=== PATIENT | female | born 1950 | race Caucasian/White ===

== ENCOUNTER 2017-03-03 14:25 | Outpatient (CLI) | payer MEDICARE, MEDICAID | END 2017-03-03 14:26 | disposition critical access hospital (66) | DX: R06.02 Shortness of breath (principal) | CPT/HCPCS: A0425; A0429 ==

== ENCOUNTER 2017-03-03 14:45 | Emergency (ER) | payer MEDICARE, MEDICAID ==
[2017-03-03] MEDS ORDERED: SODIUM CHLORIDE 0.9% 1,000 ML IV ONE (15:51)
== END 2017-03-03 18:30 | disposition home or self-care (01) ==
DX: E86.0 Dehydration (principal); R06.02 Shortness of breath; R03.0 Elevated blood-pressure reading, without diagnosis of hypertension; E11.9 Type 2 diabetes mellitus without complications; Z79.84 Long term (current) use of oral hypoglycemic drugs; E03.9 Hypothyroidism, unspecified; M19.90 Unspecified osteoarthritis, unspecified site; M05.10 Rheumatoid lung disease with rheumatoid arthritis of unspecified site; Z79.52 Long term (current) use of systemic steroids

== ENCOUNTER 2017-04-15 09:33 | Outpatient (CLI) | payer MEDICARE, MEDICAID ==
[2017-04-15] MEDS ORDERED: ALBUTEROL NEB 2.5 MG/3 ML INH ONE (10:00)
== END 2017-04-15 09:34 | disposition home or self-care (01) ==
LOC: RT 09:33
PROVIDERS: ATTEND Internal Medicine
DX: J84.9 Interstitial pulmonary disease, unspecified (principal)
CPT/HCPCS: 94060; 94729; J7613

== ENCOUNTER 2017-04-17 11:31 | Outpatient (CLI) | payer MEDICARE, MEDICAID | END 2017-04-17 11:32 | disposition home or self-care (01) | LOC: DI 11:31 | PROVIDERS: ATTEND Internal Medicine | DX: R07.9 Chest pain, unspecified (principal); R06.09 Other forms of dyspnea; I51.7 Cardiomegaly | CPT/HCPCS: 93306 ==

== ENCOUNTER 2017-10-01 15:09 | Outpatient (CLI) | payer MEDICARE, MEDICAID ==
[2017-10-01 15:53] LABS: BASOPHILS % (AUTO) 0.7 %; EOSINOPHILS # (AUTO) 0.2 10^3/uL (0.0-0.7); HGB - HEMOGLOBIN 14.5 g/dL (12.0-16.0); LYMPHOCYTES # (AUTO) 1.2 10^3/uL (1.5-3.5); LYMPHOCYTES % (AUTO) 17.9 %; MEAN CORPUSCULAR HEMOGLOBIN 31.8 pg (27.0-31.0); MEAN CORPUSCULAR HGB CONC 32.9 g/dL (32.0-36.0); MEAN CORPUSCULAR VOLUME 96.6 fL (81.0-99.0); MEAN PLATELET VOLUME 7.5 fL (7.9-10.8); MONOCYTES # (AUTO) 0.3 10^3/uL (0.0-1.0); MONOCYTES % (AUTO) 4.2 %; NEUTROPHILS # (AUTO) 4.9 10^3/uL (1.5-6.6); NEUTROPHILS % (AUTO) 74.2 %; PLT - PLATELET COUNT 165 10^3/uL (130-450); RED BLOOD COUNT 4.58 10^6/uL (4.20-5.40); RED CELL DISTRIBUTION WIDTH 13.1 % (12.0-15.0); WHITE BLOOD COUNT 6.6 x10^3/uL (4.8-10.8)
[2017-10-01 16:15] LABS: BILIRUBIN,URINE NEGATIVE (NEGATIVE); GLUCOSE, URINE (UA) NEGATIVE (NEGATIVE); KETONES,URINE (UA) NEGATIVE (NEGATIVE); LEUKOCYTE ESTERASE, URINE SMALL (NEGATIVE); NITRITE,URINE NEGATIVE (NEGATIVE); OCCULT BLOOD,URINE NEGATIVE (NEGATIVE); PROTEIN,URINE NEGATIVE (NEGATIVE); UROBILINOGEN,URINE 0.2 (NORMAL) E.U./dL (NORMAL)
[2017-10-01 16:16] LABS: CLARITY,URINE CLEAR (CLEAR)
[2017-10-01 16:29] LABS: ALT ALANINE AMINOTRANSFERASE 24 IU/L (10-60); AST ASPARTATE AMINOTRANSFERASE 23 IU/L (10-42); BUN - BLOOD UREA NITROGEN 15 mg/dL (6-20); CALCIUM 9.4 mg/dL (8.5-10.3); CARBON DIOXIDE - CO2 22 mmol/L (21-32); CHLORIDE 101 mmol/L (101-111); CHOL/HDL RATIO 3.3 (<4.4); CHOLESTEROL 210 mg/dL; CREATININE 0.9 mg/dL (0.4-1.0); GFR - MDRD 63 (>89); GLUCOSE 138 mg/dL (70-100); HDL CHOLESTEROL 63 mg/dL; LDL CHOLESTEROL,CALCULATED 106 mg/dL; LDL/HDL RATIO 1.7 (<4.4); SODIUM 137 mmol/L (135-145); VLDL CHOLESTEROL 41 mg/dL
[2017-10-01 17:21] LABS: THYROID STIMULATING HORMONE < 0.08 uIU/mL (0.34-5.60)
[2017-10-01 17:32] LABS: HB2 TOTAL 15.4 g/dL; HEMOGLOBIN A1C 0.53 g/dL; HEMOGLOBIN A1C % 5.3 % (4.6-6.2)
== END 2017-10-01 15:10 | disposition home or self-care (01) ==
LOC: LAB 15:09
PROVIDERS: ATTEND Orthopaedic Surgery
DX: Z01.818 Encounter for other preprocedural examination (principal); E11.9 Type 2 diabetes mellitus without complications; E78.2 Mixed hyperlipidemia; E03.9 Hypothyroidism, unspecified; N39.0 Urinary tract infection, site not specified; R73.09 Other abnormal glucose
CPT/HCPCS: 36415; 80048; 80051; 80061; 81003; 82565; 82947; 83036; 83721; 84439; 84443; 84450; 84460; 84520; 85025

== ENCOUNTER 2017-10-08 15:27 | Outpatient (CLI) | payer MEDICARE, MEDICAID | END 2017-10-08 15:28 | disposition home or self-care (01) | LOC: LAB 15:27 → RT 15:28 | PROVIDERS: ATTEND Orthopaedic Surgery | DX: Z01.810 Encounter for preprocedural cardiovascular examination (principal); N39.0 Urinary tract infection, site not specified; R73.09 Other abnormal glucose | CPT/HCPCS: 93005 ==

== ENCOUNTER 2017-11-05 14:27 | Outpatient (CLI) | payer MEDICARE, MEDICAID | END 2017-11-05 14:28 | disposition home or self-care (01) | LOC: SC 14:27 | PROVIDERS: ATTEND Nurse Practitioner Family | DX: G47.33 Obstructive sleep apnea (adult) (pediatric) (principal) | CPT/HCPCS: 99213; G0463; 99212 ==

== ENCOUNTER 2018-01-23 14:25 | Outpatient (CLI) | payer MEDICARE, MEDICAID ==
--- NOTE | 2018-01-27 15:36 | DEXA Report ---
DEXA: 01/23/2018 CLINICAL INDICATION: Postmenopausal. TECHNIQUE: Dual energy x-ray absorptiometry (DXA) was performed on a [employer] system. Regions measured are the AP spine, femoral neck, and, if needed, forearm. COMPARISON: None. In accordance with the International Society for Clinical Densitometry (ISCD) guidelines, data from previous exams may be reanalyzed using current recommendations and techniques. This is done to allow a more accurate basis for comparison with the current study. FINDINGS The data for the lumbar spine is as follows: REGION BMD (g/cm/cm) T-SCORE Z-SCORE L1 0.787 -2.9 -1.7 L2 0.912 -2.4 -1.2 L3 1.051 -1.2 -0.1 L4 1.026 -1.4 -0.3 L1-L4 0.948 -1.9 -0.7 NOTE: All evaluable vertebrae are used for classification. The data for the hip is as follows: REGION BMD (g/cm/cm) T-SCORE Z-SCORE Neck 0.859 -1.3 -0.1 TOTAL 0.922 -0.7 0.3 NOTE: The femoral neck or total proximal femur, whichever is lowest, is used for classification. IMPRESSION WHO CLASSIFICATION BASED ON THE INTERNATIONAL REFERENCE STANDARD IS OSTEOPENIA. FRACTURE RISK IS INCREASED. RECOMMENDATION: Patients with diagnosis of osteoporosis or osteopenia should have regular bone mineral density assessment. For those eligible for Medicare, routine testing is allowed once every 2 years. Testing frequency can be increased for patients who have rapidly progressing disease or for those who are receiving medical therapy to restore bone mass. COMMENT World Health Organization (WHO) definitions for osteoporosis and osteopenia: NORMAL BMD: T-score at 1.0 or higher, fracture risk is low. OSTEOPENIA BMD: T-score between 1.0 and -2.5, fracture risk is increased. OSTEOPOROSIS BMD: T-score at 2.5 or lower, fracture risk high. National Osteoporosis Foundation recommends: 1. Obtain adequate dietary calcium (at least 1200 mg per day) and vitamin D (400 -800 international units per day). 2. Participate, as appropriate, in regular weightbearing and muscle- strengthening exercise. 3. Avoid tobacco use and reduce alcohol and caffeine intake. 4. For more detailed information see the website at www.NOF.org. TD: 01/23/2018 15:16 MTDSav
== END 2018-01-23 14:26 | disposition home or self-care (01) ==
LOC: DI 14:25
PROVIDERS: ATTEND Internal Medicine
DX: M85.88 Other specified disorders of bone density and structure, other site (principal)
CPT/HCPCS: 77080

== ENCOUNTER 2018-03-03 09:06 | Outpatient (CLI) | payer MEDICARE, MEDICAID | END 2018-03-03 09:07 | disposition critical access hospital (66) | LOC: EMS 09:06 | PROVIDERS: ATTEND Surgery | DX: R00.2 Palpitations (principal) | CPT/HCPCS: A0425; A0429 ==

== ENCOUNTER 2018-03-03 09:10 | Emergency (ER) | payer MEDICARE, MEDICAID ==
[2018-03-03] MEDS ORDERED: SODIUM CHLORIDE 0.9% 1,000 ML IV ONE (09:18)
--- NOTE | 2018-03-03 09:21 | ED Physician Documentation ---
History of Present Illness - Stated complaint Stated Complaint: PALPITATIONS - History obtained from History obtained from: Patient - History of Present Illness Timing: Today - Additonal information Additional information: 67-year-old female was in her usual state of health and this morning was awakened by palpitations in her chest. She felt her heart racing and thumping in her chest rapidly. She denies diaphoresis nausea or shortness of breath associated with this and states that she sat up and this continued for about another minute. She believes the episode altogether lasted 3 minutes. She called 911 and medics arrived to find her in the sinus tachycardia with a rate of 110. She is now asymptomatic and was asymptomatic at the time of their initial intervention. Review of Systems Constitutional: denies: Fever, Chills Eyes: denies: Decreased vision Ears: denies: Ear pain Nose: denies: Congestion Throat: denies: Sore throat Cardiac: reports: Palpitations. denies: Chest pain / pressure, Pedal edema, Calf pain Respiratory: reports: Dyspnea. 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 - Present Medications Home Medications: Ambulatory Orders Medication Instructions Recorded Confirmed Cholecalciferol (Vitamin D3) 50,000 unit PO BIDWM 08/24/14 10/31/14 [Vitamin D] Cyclobenzaprine [Flexeril] 10 mg PO BID 08/24/14 10/31/14 Dextroamphetamine/Amphetamine 20 mg PO DAILY 08/24/14 10/31/14 [Amphetamine Salts 10 mg Tablet] Hydrocodone/Acetaminophen 5 mg PO TID 08/24/14 10/31/14 [Hydrocodon-Acetaminophn 10-325] Levothyroxine Sodium 175 mcg PO DAILY 08/24/14 10/31/14 Metformin HCl 500 mg PO BID 08/24/14 10/31/14 Prednisone 20 mg PO DAILY 08/24/14 10/31/14 buPROPion [Wellbutrin Sr] 300 mg PO DAILY 08/24/14 10/31/14 Adalimumab [Humira] 40 mg SQ 03/03/18 Albuterol Sulf [Ventolin Hfa 2 puffs PRN PRN 03/03/18 03/03/18 Inhaler] Diclofenac Sodium [Voltaren] PRN 03/03/18 Hydroxychloroquine [Plaquenil] 400 mg PO DAILY 03/03/18 03/03/18 Zolpidem Tartrate [Ambien] 10 mg PO 03/03/18 risperiDONE [Risperdal] 0.5 mg PO BID 03/03/18 03/03/18 - Allergies Allergies/Adverse Reactions: Allergies Allergy/AdvReac Type Severity Reaction Status Date / Time codeine AdvReac Nausea Verified 03/03/18 10:03 NSAIDS (Non-Steroidal AdvReac Nausea Verified 03/03/18 10:03 Anti-Inflamma - Social History Does the pt smoke?: No Smoking Status: Never smoker Does the pt drink ETOH?: Yes - Immunizations Immunizations are current?: No Immunizations: TDAP >10years/unknown - POLST Patient has POLST: No PD ED PE NORMAL - Vitals Vital signs reviewed: Yes (hyertensive) - General General: Alert and oriented X 3, No acute distress, Well developed/nourished - HEENT HEENT: Atraumatic, PERRL, EOMI - Neck Neck: Supple, no meningeal sign, No bony TTP - Cardiac Cardiac: No murmur, Other (tachy to 100) - Respiratory Respiratory: No respiratory distress, Clear bilaterally - Abdomen Abdomen: Soft, Non tender - Back Back: No CVA TTP, No spinal TTP - Derm Derm: Normal color, Warm and dry, No rash - Extremities Extremities: No deformity, No edema - Neuro Neuro: Alert and oriented X 3, No motor deficit, No sensory deficit, Normal speech Eye Opening: Spontaneous Motor: Obeys Commands Verbal: Oriented GCS Score: 15 - Psych Psych: Normal mood, Normal affect Results - Vitals Vitals: Vital Signs - 24 hr 03/03/18 03/03/18 03/03/18 09:11 09:39 10:46 Temperature 36.7 C Heart Rate 95 75 67 Respiratory 15 17 20 Rate Blood Pressure 145/93 H 117/68 121/59 L O2 Saturation 99 96 98 03/03/18 11:40 Temperature Heart Rate 70 Respiratory 16 Rate Blood Pressure 122/60 O2 Saturation 99 Oxygen O2 Source Room air - EKG (time done) 0919 [place]: RAD QRS: Low voltage Ischemia: Normal ST segments Compare to prior EKG: Changed from prior EKG (SPT 10-08-17 rate has decreased. ) Computer interpretation: Agree with computer - Labs Labs: Laboratory Tests 03/03/18 03/03/18 03/03/18 09:36 09:49 09:49 WBC 6.8 RBC 4.31 Hgb 14.1 Hct 42.2 MCV 97.8 MCH 32.6 H MCHC 33.3 RDW 13.3 Plt Count 84 L MPV 9.2 Neut # (Auto) 4.1 Lymph # (Auto) 2.1 [place] # (Auto) 0.3 Eos # (Auto) 0.1 Baso # (Auto) 0.1 Absolute Nucleated RBC 0.00 Nucleated RBC % 0.1 D-Dimer Sodium 137 Potassium 3.7 Chloride 103 Carbon Dioxide 26 Anion Gap 8.0 BUN 17 Creatinine 0.7 Estimated GFR (MDRD) 84 L Glucose 84 Calcium 8.9 Total Bilirubin 0.7 AST 20 ALT 18 Alkaline Phosphatase 55 Troponin I < 0.04 Total Protein 6.3 L Albumin 3.5 Globulin 2.8 Albumin/Globulin Ratio 1.3 Lipase 21 L Urine Color Urine Clarity Urine pH Ur Specific [place] Urine Protein Urine Glucose (UA) Urine Ketones Urine Occult Blood Urine Nitrite Urine Bilirubin Urine Urobilinogen Ur Leukocyte Esterase Ur Microscopic Review Urine Culture Comments 03/03/18 03/03/18 10:10 11:12 WBC RBC Hgb Hct MCV MCH MCHC RDW Plt Count MPV Neut # (Auto) Lymph # (Auto) [place] # (Auto) Eos # (Auto) Baso # (Auto) Absolute Nucleated RBC Nucleated RBC % D-Dimer 214.7 Sodium Potassium Chloride Carbon Dioxide Anion Gap BUN Creatinine Estimated GFR (MDRD) Glucose Calcium Total Bilirubin AST ALT Alkaline Phosphatase Troponin I Total Protein Albumin Globulin Albumin/Globulin Ratio Lipase Urine Color YELLOW Urine Clarity CLEAR Urine pH 7.0 Ur Specific [place] 1.025 Urine Protein NEGATIVE Urine Glucose (UA) NEGATIVE Urine Ketones NEGATIVE Urine Occult Blood NEGATIVE Urine Nitrite NEGATIVE Urine Bilirubin NEGATIVE Urine Urobilinogen 0.2 (NORMAL) Ur Leukocyte Esterase NEGATIVE Ur Microscopic Review NOT INDICATED Urine Culture Comments NOT INDICATED Procedures - IVC sono (time) 0918 Bedside IVC sono: IVC measures (cm) (0.98), IVC collapsed c insp (cm) (complete) , Dehydration (est 1.5-2 liter deficit) PD MEDICAL DECISION MAKING - ED course Complexity details: reviewed results, re-evaluated patient, considered differential, d/w patient ED course: 67-year-old female awoke with palpitations this morning arrives to the emergency department with a resting tachycardia of about 100 and she is found to be dehydrated on interrogation the inferior vena cava. She is estimated but he to be between 1.5 and 2 L deficit and an IV is begun and she is administered saline. She feels much improved at the conclusion of treatment. - Sepsis Event Vital Signs: Vital Signs - 24 hr 03/03/18 03/03/18 03/03/18 09:11 09:39 10:46 Temperature 36.7 C Heart Rate 95 75 67 Respiratory 15 17 20 Rate Blood Pressure 145/93 H 117/68 121/59 L O2 Saturation 99 96 98 03/03/18 11:40 Temperature Heart Rate 70 Respiratory 16 Rate Blood Pressure 122/60 O2 Saturation 99 Oxygen O2 Source Room air Departure - Departure Disposition: 01 Home, Self Care Clinical Impression: Dehydration, Palpitations Condition: Stable Instructions: ED Dehydration, ED Palpitations Follow-Up: Tatiana Sheikh MD [Primary Care Provider] - Grace Dooley MD [Physician No Access] - Discharge Date/Time: 03/03/18 11:54
[2018-03-03 09:45] LABS: BASOPHILS # (AUTO) 0.1 10^3/uL (0.0-0.1); BASOPHILS % (AUTO) 1.2 %; EOSINOPHILS # (AUTO) 0.1 10^3/uL (0.0-0.7); EOSINOPHILS % (AUTO) 1.9 %; HGB - HEMOGLOBIN 14.1 g/dL (12.0-16.0); LYMPHOCYTES # (AUTO) 2.1 10^3/uL (1.5-3.5); LYMPHOCYTES % (AUTO) 31.2 %; MEAN CORPUSCULAR HEMOGLOBIN 32.6 pg (27.0-31.0); MEAN CORPUSCULAR HGB CONC 33.3 g/dL (32.0-36.0); MEAN CORPUSCULAR VOLUME 97.8 fL (81.0-99.0); MEAN PLATELET VOLUME 9.2 fL (7.9-10.8); MONOCYTES # (AUTO) 0.3 10^3/uL (0.0-1.0); MONOCYTES % (AUTO) 5.1 %; NEUTROPHILS # (AUTO) 4.1 10^3/uL (1.5-6.6); NEUTROPHILS % (AUTO) 60.6 %; PLT - PLATELET COUNT 84 10^3/uL (130-450); RED BLOOD COUNT 4.31 10^6/uL (4.20-5.40); RED CELL DISTRIBUTION WIDTH 13.3 % (12.0-15.0); WHITE BLOOD COUNT 6.8 x10^3/uL (4.8-10.8)
[2018-03-03 10:15] LABS: ALBUMIN 3.5 g/dL (3.2-5.5); ALBUMIN/GLOBULIN RATIO 1.3 (1.0-2.2); BILIRUBIN,TOTAL 0.7 mg/dL (0.2-1.0); CALCIUM 8.9 mg/dL (8.5-10.3); CREATININE 0.7 mg/dL (0.4-1.0); TOTAL PROTEIN 6.3 g/dL (6.7-8.2)
[2018-03-03 11:26] LABS: BILIRUBIN,URINE NEGATIVE (NEGATIVE); GLUCOSE, URINE (UA) NEGATIVE (NEGATIVE); KETONES,URINE (UA) NEGATIVE (NEGATIVE); LEUKOCYTE ESTERASE, URINE NEGATIVE (NEGATIVE); NITRITE,URINE NEGATIVE (NEGATIVE); OCCULT BLOOD,URINE NEGATIVE (NEGATIVE); PROTEIN,URINE NEGATIVE (NEGATIVE); UROBILINOGEN,URINE 0.2 (NORMAL) E.U./dL (NORMAL)
[2018-03-03 11:30] LABS: CLARITY,URINE CLEAR (CLEAR)
[2018-03-03 11:42] VITALS: BP 122/60
== END 2018-03-03 11:54 | disposition home or self-care (01) ==
LOC: EDUNIT# → ED 09:10
DX: E86.0 Dehydration (principal); R00.2 Palpitations; E03.9 Hypothyroidism, unspecified; E11.9 Type 2 diabetes mellitus without complications; Z79.84 Long term (current) use of oral hypoglycemic drugs
CPT/HCPCS: 36415; 80053; 81001; 81003; 83690; 84484; 85025; 85379; 87086; 93005; 96360; 99284

== ENCOUNTER 2019-05-09 00:51 | Outpatient (CLI) | payer MEDICARE, MEDICAID | END 2019-05-09 00:52 | disposition EMS.NT | LOC: EMS 00:51 | PROVIDERS: ATTEND Surgery | DX: M54.5 Low back pain (principal); W01.190A Fall on same level from slipping, tripping and stumbling with subsequent striking against furniture, initial encounter; Y92.000 Kitchen of unspecified non-institutional (private) residence as the place of occurrence of the external cause ==

== ENCOUNTER 2019-05-10 11:57 | Outpatient (CLI) | payer MEDICARE, MEDICAID | END 2019-05-10 11:58 | disposition critical access hospital (66) | LOC: EMS 11:57 | PROVIDERS: ATTEND Surgery | DX: M25.552 Pain in left hip (principal); M54.5 Low back pain; W19.XXXA Unspecified fall, initial encounter | CPT/HCPCS: A0425; A0429 ==

== ENCOUNTER 2019-05-10 12:04 | Emergency (ER) | payer MEDICARE, MEDICAID ==
[2019-05-10] MEDS ORDERED: KETOROLAC 60 MG/2 ML VIAL IM STA (12:12)
--- NOTE | 2019-05-10 12:13 | ED Physician Documentation ---
PD HPI BACK INJURY - Stated complaint Stated Complaint: R HIP, BACK PX - History obtained from History obtained from: Patient - History of Present Illness Location: Right, Lower Type of injury: Fall, Twist Where injury occurred: Home Timing - onset: How many days ago (3) Timing - duration: Days (3) Timing - details: Abrupt onset, Still present Quality: Pain, Spasm, Sharp Improved by: Rest, Immobilization Worsened by: Moving, Palpating Associated symptoms: No: Fever, Weakness, Numbness, Incontinent of urine, Unable to urinate, Hematuria, Incontinent of stool Contributing factors: No: Anticoagulated Similar symptoms before: Has not had sx before Recently seen: Clinic - Additional information Additional information: 68-year-old female with a history of kyphoscoliosis Review of Systems Constitutional: denies: Fever Respiratory: denies: Cough GI: denies: Vomiting PD PAST MEDICAL HISTORY - Past Medical History Cardiovascular: Arrhythmia Respiratory: Other Endocrine/Autoimmune: Type 2 diabetes, HyPOthyroidism Psych: Depression, Bipolar disorder, ADD/ADHD, Post traumatic stress disorder Musculoskeletal: Osteoarthritis - Past Surgical History Past Surgical History: Yes General: Cholecystectomy 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 - Present Medications Home Medications: Ambulatory Orders Medication Instructions Recorded Confirmed Cholecalciferol (Vitamin D3) 50,000 unit PO BIDWM 08/24/14 10/31/14 [Vitamin D] Cyclobenzaprine [Flexeril] 10 mg PO BID 08/24/14 10/31/14 Dextroamphetamine/Amphetamine 20 mg PO DAILY 08/24/14 10/31/14 [Amphetamine Salts 10 mg Tablet] Hydrocodone/Acetaminophen 5 mg PO TID 08/24/14 10/31/14 [Hydrocodon-Acetaminophn 10-325] Levothyroxine Sodium 175 mcg PO DAILY 08/24/14 10/31/14 Metformin HCl 500 mg PO BID 08/24/14 10/31/14 Prednisone 20 mg PO DAILY 08/24/14 10/31/14 buPROPion [Wellbutrin Sr] 300 mg PO DAILY 08/24/14 10/31/14 Adalimumab [Humira] 40 mg SQ 03/03/18 Albuterol Sulf [Ventolin Hfa 2 puffs PRN PRN 03/03/18 03/03/18 Inhaler] Diclofenac Sodium [Voltaren] PRN 03/03/18 Hydroxychloroquine [Plaquenil] 400 mg PO DAILY 03/03/18 03/03/18 Zolpidem Tartrate [Ambien] 10 mg PO 03/03/18 risperiDONE [Risperdal] 0.5 mg PO BID 03/03/18 03/03/18 Hydrocodone/Acetaminophen 1 - 2 each PO Q6H PRN #14 tablet 05/10/19 [Hydrocodon-Acetaminophen 5-325] - Allergies Allergies/Adverse Reactions: Allergies Allergy/AdvReac Type Severity Reaction Status Date / Time codeine AdvReac Nausea Verified 05/10/19 12:21 NSAIDS (Non-Steroidal AdvReac Nausea Verified 05/10/19 12:21 Anti-Inflamma - Social History Does the pt smoke?: No Smoking Status: Never smoker Does the pt drink ETOH?: Yes - Immunizations Immunizations are current?: No Immunizations: TDAP >10years/unknown - POLST Patient has POLST: No PD ED PE NORMAL - Vitals Vital signs reviewed: Yes (hypertensive ) - General General: Alert and oriented X 3, Well developed/nourished - HEENT HEENT: Atraumatic, PERRL, EOMI - Respiratory Respiratory: No respiratory distress - Back Back: No CVA TTP, Other (There is right lumbar spinous and paraspinous muscle tenderness extending into the sciatic notch. 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 Minimal compression deformity of the superior endplate of L1, new compared to 12/28. 2 Possible minimal compression deformity of the superior endplate of L3, new compared to prior. 3 Mild degenerative changes of the lumbar spine.), EMP read indepedently, See rad report PD MEDICAL DECISION MAKING - ED course Complexity details: reviewed old records, reviewed results, re-evaluated patient, considered differential, d/w patient, d/w family ED course: 68-year-old female with a history of kyphoscoliosis has had a fall and she has a L1 compression fracture. She has pain with any movement she is quite comfortab le after getting Toradol here in the emergency department when she is not moving. She is placed into a TLSO brace with substantial improvement in her ability to move around and to walk. We will prescribe her some additional pain medication as she has taken which she normally has. Departure - Departure Disposition: Home, Self Care Clinical Impression: Lumbar compression fracture Qualifiers: Encounter type: initial encounter Lumbar vertebra fracture level: L1 Qualified Code(s): S32.010A - Wedge compression fracture of first lumbar vertebra, initial encounter for closed fracture Condition: Stable Instructions: ED Fx Comp Vertebral Follow-Up: Grace Dooley MD [Primary Care Provider] - Prescriptions: Hydrocodone/Acetaminophen [Hydrocodon-Acetaminophen 5-325] 1 - 2 each PO Q6H PRN #14 tablet PRN Reason: pain
--- NOTE | 2019-05-10 12:59 | XRAY Report ---
Reason: fall 3 days ago increasing lower back pain right Procedure Date: 05/10/2019 Accession Number: [id number] / [id number] Procedure: XR - Lumbar Spine 2 View CPT Code: FULL RESULT: EXAM: LUMBOSACRAL SPINE RADIOGRAPHY EXAM DATE: 05/10/2019 12:45 PM. CLINICAL HISTORY: Fall 3 days ago. Increasing lower back pain right. COMPARISONS: LUMBAR SPINE 12/28/2010 2:49 PM. TECHNIQUE: 2 views. FINDINGS: Evaluation limited by obliquity of the frontal view. Alignment: Normal. No spondylolisthesis or scoliosis. Bones: Five [id number] lumbar vertebral bodies are present. There is minimal compression deformity of the superior endplate of L1, new compared to 12/28/2010. No posterior wall height loss. There is possible minimal compression deformity of the superior endplate of L3, new compared to prior. The other visualized bones appear intact. No bone lesion. There is an unfused accessory ossicle at the anterior superior margin of L5 vertebral body, as seen on prior MRI. Disks: There is mild disk height loss at the T12-L1 level and L2-L3 level. Facets: There are mild degenerative facet changes of the lower lumbar spine. Sacroiliac Joints: Unremarkable. Soft Tissues: There is mild atherosclerotic ossification of the abdominal aorta. There are surgical clips in the upper abdomen. The visualized bowel gas pattern is normal. IMPRESSION: 1. Minimal compression deformity of the superior endplate of L1, new compared to 12/28/2010. 2. Possible minimal compression deformity of the superior endplate of L3, new compared to prior. 4. Mild degenerative changes of the lumbar spine. RADIA
[2019-05-10 16:06] VITALS: BP 124/76
== END 2019-05-10 16:05 | disposition home or self-care (01) ==
LOC: EDUNIT# → ED 12:04
DX: S32.010A Wedge compression fracture of first lumbar vertebra, initial encounter for closed fracture (principal); M25.551 Pain in right hip; W01.190A Fall on same level from slipping, tripping and stumbling with subsequent striking against furniture, initial encounter; Y92.009 Unspecified place in unspecified non-institutional (private) residence as the place of occurrence of the external cause; M41.9 Scoliosis, unspecified; E11.9 Type 2 diabetes mellitus without complications; Z79.84 Long term (current) use of oral hypoglycemic drugs
CPT/HCPCS: 72100; 96372; 99283; 99284

== ENCOUNTER 2019-07-12 23:43 | Outpatient (CLI) | payer MEDICARE, MEDICAID | END 2019-07-12 23:44 | disposition critical access hospital (66) | LOC: EMS 23:43 | PROVIDERS: ATTEND Surgery | DX: R14.0 Abdominal distension (gaseous) (principal); R11.0 Nausea | CPT/HCPCS: A0425; A0429 ==

== ENCOUNTER 2019-09-22 09:32 | Outpatient (CLI) | payer MEDICARE, MEDICAID | END 2019-09-22 09:33 | disposition critical access hospital (66) | LOC: EMS 09:32 | PROVIDERS: ATTEND Surgery | DX: R41.82 Altered mental status, unspecified (principal); M54.5 Low back pain; W06.XXXA Fall from bed, initial encounter; Y92.003 Bedroom of unspecified non-institutional (private) residence as the place of occurrence of the external cause | CPT/HCPCS: A0425; A0429 ==

== ENCOUNTER 2019-09-22 09:35 | Emergency (ER) | payer MEDICARE, MEDICAID ==
--- NOTE | 2019-09-22 09:47 | ED Physician Documentation ---
PD HPI ALTERED MENTAL STATUS - Stated complaint Stated Complaint: CONFUSION - History obtained from History obtained from: Patient - History of Present Illness Timing - onset: Today (Just prior to arrival) Timing - details: Abrupt onset Quality / character: No: Less responsive, Unresponsive, Confused Associated symptoms: No: Fever, Headache, Stiff neck, Cough, NVD Basline status: Alert and oriented X 3, Ambulatory (With walker), Walker Recently seen: Not recently seen - Additional information Additional information: This is a 68-year-old woman who presents by ambulance after she "fell out of bed". Apparently she heard someone in the house she thought it was the workers that were coming and she got out of bed quickly and fell onto the floor. It turns out there was not anyone actually in the house so she hit her [facility] and the ambulance came. She said this is her fourth fall in the past 5 to 6 months she just trips her shoulder turn her head while she is walking and fall. She did hit her head today but did not pass out. She complaining of a "straining" pain to the left neck and she has pain in her right thigh above the knee. No pain in the right arm. She does not has not felt ill recently. No stuffy nose sore throat or coughing. No urinary symptoms. She is diabetic. Review of Systems Constitutional: denies: Fever Eyes: denies: Decreased vision Nose: denies: Congestion Throat: denies: Sore throat Cardiac: denies: Chest pain / pressure, Palpitations Respiratory: denies: Dyspnea, Cough GI: denies: Abdominal Pain, Nausea, Vomiting : denies: Dysuria Skin: denies: Rash Musculoskeletal: reports: Neck pain, Extremity pain, Joint pain Neurologic: reports: Generalized weakness, Head injury. 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 HEENT: Cataracts - Present Medications Home Medications: Ambulatory Orders Medication Instructions Recorded Confirmed Cyclobenzaprine [Flexeril] 10 mg PO DAILY 08/24/14 07/14/19 Dextroamphetamine/Amphetamine 20 mg PO DAILY 08/24/14 07/13/19 [Dextroamp-Amphetamin 10 mg Tab] Levothyroxine Sodium 88 mcg PO DAILY 08/24/14 07/13/19 Metformin HCl 500 mg PO BID 08/24/14 07/14/19 Prednisone 10 mg PO DAILY 08/24/14 07/13/19 Adalimumab [Humira] 40 mg SQ Q14D 03/03/18 07/13/19 Albuterol Sulf [Ventolin Hfa 2 puffs PRN PRN 03/03/18 07/13/19 Inhaler] Zolpidem Tartrate [Ambien] 10 mg PO DAILY 03/03/18 07/13/19 risperiDONE [Risperdal] 0.5 mg PO DAILY 03/03/18 07/13/19 Bupropion HCl [Bupropion Xl] 300 mg PO DAILY 07/13/19 07/13/19 Cholecalciferol (Vitamin D3) 3,000 units PO DAILY 07/13/19 07/14/19 [Vitamin D3] Risperidone [Risperdal] 1 mg PO QPM 07/13/19 07/13/19 Alendronate Sodium 70 mg PO Q7D 07/14/19 07/14/19 Cyclobenzaprine [Flexeril] 20 mg PO QPM 07/14/19 07/14/19 Hydrocodone/Acetaminophen 1 tab PO TID PRN 07/14/19 07/14/19 [Hydrocodone-Acetamin 5-325 mg] - Allergies Allergies/Adverse Reactions: Allergies Allergy/AdvReac Type Severity Reaction Status Date / Time codeine AdvReac Nausea Verified 09/22/19 09:48 NSAIDS (Non-Steroidal AdvReac Nausea Verified 09/22/19 09:48 Anti-Inflamma - Social History Does the pt smoke?: No Smoking Status: Never smoker Does the pt drink ETOH?: Yes Does the pt have substance abuse?: Yes - Immunizations Immunizations are current?: No Immunizations: TDAP >10years/unknown - POLST Patient has POLST: No POLST Status: Full Code PD ED PE NORMAL - Vitals Vital signs reviewed: Yes - General General: Alert and oriented X 3, No acute distress, Well developed/nourished - HEENT HEENT: PERRL, EOMI, Moist mucous membranes, Other (Remains in the cervical collar until imaging could be obtained. There appears to be a small bit of bruising to the right upper forehead at the scalp line. No hematoma.) - Neck Neck: Other (In cervical collar) - Cardiac Cardiac: RRR, No murmur, Strong equal pulses - Respiratory Respiratory: No respiratory distress, Clear bilaterally - Abdomen Abdomen: Normal bowel sounds, Soft - Derm Derm: Normal color, Warm and dry, No rash - Extremities Extremities: No deformity, Other (There is a well-healed scar over the right knee. She has pain throughout the right thigh and palpation of the greater trochanter of the hip. No pain with palpation or movement of the left leg.) - Neuro Neuro: Alert and oriented X 3, suede cleaner 2-12 intact, No motor deficit, No sensory deficit, Normal speech - Psych Psych: Normal mood, Normal affect Results - Vitals Vitals: Vital Signs - 24 hr 09/22/19 09/22/19 09/22/19 09:43 10:06 11:40 Temperature 36.3 C L Heart Rate 78 109 H 73 Respiratory 20 14 16 Rate Blood Pressure 134/94 H 150/92 H 132/80 H O2 Saturation 99 100 99 09/22/19 09/22/19 13:38 14:21 Temperature 36.2 C L Heart Rate 66 Respiratory 14 Rate Blood Pressure 100/64 O2 Saturation 96 Oxygen O2 Source Room air - Labs Labs: Laboratory Tests 09/22/19 09/22/19 09/22/19 10:22 10:25 10:25 WBC 7.0 RBC 4.29 Hgb 13.7 Hct 42.8 MCV 99.8 H MCH 31.9 H MCHC 32.0 RDW 13.2 Plt Count 151 MPV 9.7 Neut # (Auto) 4.4 Lymph # (Auto) 1.7 Chicot # (Auto) 0.6 Eos # (Auto) 0.2 Baso # (Auto) 0.1 Absolute Nucleated RBC 0.00 Nucleated RBC % 0.0 Sodium 137 Potassium 4.1 Chloride 104 Carbon Dioxide 22 Anion Gap 11.0 BUN 13 Creatinine 0.8 Estimated GFR (MDRD) 72 L Glucose 104 H Calcium 9.1 Total Bilirubin 1.0 AST 24 ALT 17 Alkaline Phosphatase 41 L B-Natriuretic Peptide 18 Total Protein 6.8 Albumin 3.9 Globulin 2.9 Albumin/Globulin Ratio 1.3 Lipase 30 Urine Color Urine Clarity Urine pH Ur Specific Elmer Urine Protein Urine Glucose (UA) Urine Ketones Urine Occult Blood Urine Nitrite Urine Bilirubin Urine Urobilinogen Ur Leukocyte Esterase Urine RBC Urine WBC Ur Squamous Epith Cells Amorphous Sediment Urine Bacteria Urine Mucus Ur Microscopic Review Urine Culture Comments 09/22/19 13:30 WBC RBC Hgb Hct MCV MCH MCHC RDW Plt Count MPV Neut # (Auto) Lymph # (Auto) Chicot # (Auto) Eos # (Auto) Baso # (Auto) Absolute Nucleated RBC Nucleated RBC % Sodium Potassium Chloride Carbon Dioxide Anion Gap BUN Creatinine Estimated GFR (MDRD) Glucose Calcium Total Bilirubin AST ALT Alkaline Phosphatase B-Natriuretic Peptide Total Protein Albumin Globulin Albumin/Globulin Ratio Lipase Urine Color YELLOW Urine Clarity CLEAR Urine pH 6.0 Ur Specific Elmer >=1.030 H Urine Protein NEGATIVE Urine Glucose (UA) NEGATIVE Urine Ketones NEGATIVE Urine Occult Blood NEGATIVE Urine Nitrite NEGATIVE Urine Bilirubin NEGATIVE Urine Urobilinogen 0.2 (NORMAL) Ur Leukocyte Esterase TRACE H Urine RBC 0-5 Urine WBC 4-5 Ur Squamous Epith Cells RARE Squamous Amorphous Sediment Rare Urine Bacteria Rare Urine Mucus Few Strands Ur Microscopic Review INDICATED Urine Culture Comments INDICATED - Rads (name of study) r hip Radiology: EMP read contemporaneously (neg acute), See rad report cxr Radiology: EMP read contemporaneously (neg), See rad report ct brain Radiology: See rad report (neg acute) ct cervical spine Radiology: See rad report PD MEDICAL DECISION MAKING - ED course Complexity details: reviewed results, re-evaluated patient, d/w patient, d/w family ED course: White blood cell count was normal. BNP and CMP are normal. Her urine just had trace leukocyte esterase and a culture is been obtained. She is asymptomatic so I do not plan to treat and less something shows up on the culture. She did not break her hip and the CT of the neck was without obvious fracture and her head CT was negative. The patient was able to ambulate here in the department with a walker to the bathroom without any difficulty. She is encouraged to make sure that she walks only whilst being steadied with a walker at home. Continue working up the cause of the falls with her primary care provider. Departure - Departure Disposition: Home, Self Care Clinical Impression: Fall Qualifiers: Encounter type: initial encounter Qualified Code(s): W19.XXXA - Unspecified fall, initial encounter Contusion Qualifiers: Encounter type: initial encounter Contusion area: head Contusion of head detail: unspecified part of head Qualified Code(s): S00.93XA - Contusion of unspecified part of head, initial encounter Condition: Good Instructions: ED Fall Uncertain Cause, ED Prevention Fall Follow-Up: Grace Dooley MD [Primary Care Provider] - Comments: Make sure that you steady yourself before standing up quickly and walking to prevent further falls. Follow-up with your primary care provider to continue evaluation for the frequent falls.
[2019-09-22] MEDS ORDERED: ONDANSETRON 4 MG/2 ML VIAL IVP STA (10:10)
[2019-09-22] MEDS ORDERED: MORPHINE 2 MG/ML CARPUJECT IVP STA (10:10)
[2019-09-22 10:32] LABS: BASOPHILS # (AUTO) 0.1 10^3/uL (0.0-0.1); BASOPHILS % (AUTO) 0.9 %; EOSINOPHILS # (AUTO) 0.2 10^3/uL (0.0-0.7); HGB - HEMOGLOBIN 13.7 g/dL (12.0-16.0); LYMPHOCYTES # (AUTO) 1.7 10^3/uL (1.5-3.5); LYMPHOCYTES % (AUTO) 24.5 %; MEAN CORPUSCULAR HEMOGLOBIN 31.9 pg (27.0-31.0); MEAN CORPUSCULAR VOLUME 99.8 fL (81.0-99.0); MEAN PLATELET VOLUME 9.7 fL (7.9-10.8); MONOCYTES # (AUTO) 0.6 10^3/uL (0.0-1.0); MONOCYTES % (AUTO) 8.5 %; NEUTROPHILS # (AUTO) 4.4 10^3/uL (1.5-6.6); NEUTROPHILS % (AUTO) 62.4 %; PLT - PLATELET COUNT 151 10^3/uL (130-450); RED BLOOD COUNT 4.29 10^6/uL (4.20-5.40); RED CELL DISTRIBUTION WIDTH 13.2 % (12.0-15.0)
[2019-09-22 10:57] LABS: ALBUMIN 3.9 g/dL (3.2-5.5); ALBUMIN/GLOBULIN RATIO 1.3 (1.0-2.2); CALCIUM 9.1 mg/dL (8.5-10.3); CREATININE 0.8 mg/dL (0.4-1.0); TOTAL PROTEIN 6.8 g/dL (6.7-8.2)
--- NOTE | 2019-09-22 11:40 | XRAY Report ---
Reason: trauma Procedure Date: 09/22/2019 Accession Number: [id number] / [id number] Procedure: XR - Hip w/Pelvis 4V RT CPT Code: Final Report FULL RESULT: EXAM: RIGHT HIP RADIOGRAPHY EXAM DATE: 09/22/2019 11:26 AM. CLINICAL HISTORY: Trauma. COMPARISON: 04/04/2010 2:48 PM. TECHNIQUE: 2 views. FINDINGS: Detail is somewhat limited secondary to patient body habitus. Bones: Normal. No fractures or bone lesion. Joints: Normal. No dislocation. The hip joint space is preserved. Soft Tissues: Normal. No soft tissue swelling. IMPRESSION: Detail somewhat limited secondary to patient body habitus. Submitted images demonstrate no evidence of acute fracture or dislocation. RADIA
--- NOTE | 2019-09-22 11:42 | XRAY Report ---
Reason: chest pain Procedure Date: 09/22/2019 Accession Number: [id number] / [id number] Procedure: XR - Chest 1 View X-Ray CPT Code: 98885 Final Report FULL RESULT: EXAM: CHEST RADIOGRAPHY EXAM DATE: 09/22/2019 11:26 AM. CLINICAL HISTORY: Chest pain. COMPARISON: CERVICAL SPINE W/O 09/22/2019 11:09 AM CHEST 2 VIEW PA/LAT 03/03/2017 3:45 PM. TECHNIQUE: 1 view. FINDINGS: Lungs/Pleura: There is peripheral reticular opacity. No evidence of acute consolidation or effusion. No pneumothorax. Mediastinum: There is cardiomegaly. There is thoracic aortic calcification. Other: None. IMPRESSION: 1. No evidence of acute traumatic injury to the chest. 2. There is cardiomegaly. 3. There is underlying interstitial lung disease. RADIA
--- NOTE | 2019-09-22 12:06 | CT Report ---
Reason: trauma Procedure Date: 09/22/2019 Accession Number: [id number] / [id number] Procedure: CT - HEAD WO CPT Code: Final Report FULL RESULT: EXAM: CT HEAD EXAM DATE: 09/22/2019 11:24 AM. CLINICAL HISTORY: Trauma. COMPARISON: None. TECHNIQUE: Multiaxial CT images were obtained from the foramen magnum to the vertex. Reformats: Sagittal and coronal. IV contrast: None. In accordance with CT protocol optimization, one or more of the following dose reduction techniques were utilized for this exam: automated exposure control, adjustment of mA and/or KV based on patient size, or use of iterative reconstructive technique. FINDINGS: Parenchyma: No intraparenchymal hemorrhage. No evidence of mass, midline shift, or CT findings of acute infarction. Triana-white differentiation is distinct. Diffuse chronic microangiopathic white matter changes are evident. Extraaxial Spaces: Normal for age. No subdural or epidural collections identified. Ventricles: The ventricles and cortical sulci are enlarged, consistent with age-related tissue loss. Sinuses and orbits: Imaged paranasal sinuses, orbits, and mastoids show no significant abnormality. Bones: No evidence of fracture or calvarial defect. Other: None. IMPRESSION: Generalized age-related cortical atrophic changes without evidence of acute intracranial abnormality. RADIA
--- NOTE | 2019-09-22 12:16 | CT Report ---
Reason: neck pain Procedure Date: 09/22/2019 Accession Number: [id number] / [id number] Procedure: CT - CERVICAL SPINE WO CPT Code: Final Report FULL RESULT: EXAM: CT CERVICAL SPINE WITHOUT CONTRAST DATE: 09/22/2019 11:24 AM. HISTORY: Neck pain. COMPARISONS: CERVICAL SPINE 04/11/2011 10:13 AM. TECHNIQUE: Thin-section axial images were acquired of the cervical spine without contrast. Post-processing: Coronal and sagittal reformats. Other: None. In accordance with CT protocol optimization, one or more of the following dose reduction techniques were utilized for this exam: automated exposure control, adjustment of mA and/or KV based on patient size, or use of iterative reconstructive technique. FINDINGS: Alignment: Grade 1 C7 on T1 and T1 on T2 anterolisthesis likely due to degenerative changes. Levoscoliosis of the upper lumbar and lower cervical spine is noted. Bones: No fracture or bone lesion. Small amount of fluid is noted in the left mastoid tip. No obvious associated fracture. Interspace Levels/Facets: C1-C2: Unremarkable. C2-C3: Unremarkable. C3-C4: Mild disk narrowing. Mild left facet arthropathy. No significant right facet arthropathy. No significant central canal or foraminal stenosis. C4-C5: Mild to moderate disk narrowing and prominent disk osteophyte complex and uncovertebral joint hypertrophy without significant foraminal stenosis. No significant facet arthropathy. C5-C6: Mild disk narrowing with small disk osteophyte complex and uncovertebral joint hypertrophy without significant foraminal stenosis. Mild left facet arthropathy. No significant right facet arthropathy. C6-C7: Mild disk narrowing. No significant facet arthropathy. No significant central canal or foraminal stenosis. C7-T1: Mild disk narrowing. Moderate left C7-T1 and mild right C7-T1 facet arthropathy. No significant central canal or foraminal stenosis. Musculature: Normal. No fatty atrophy. Other: The paravertebral and prevertebral soft tissues are unremarkable. coarse subpleural blebs and reticulation are noted along apices bilaterally. No concerning nodule or mass in the apices. Biapical pleural-parenchymal thickening is noted. No pneumothorax or large effusion. Atheromatous plaques are noted in the thoracic arch. IMPRESSION: 1. No acute fracture. 2. Grade 1 C7 on T1 and T1 on T2 anterolisthesis likely degenerative in origin. Levoscoliosis of the cervical thoracic spine is noted. 3. No paraspinal hematoma. 4. Multilevel degenerative disk and facet arthropathy. See above. RADIA
[2019-09-22 13:38] VITALS: BP 100/64
[2019-09-22 13:47] LABS: BILIRUBIN,URINE NEGATIVE (NEGATIVE); GLUCOSE, URINE (UA) NEGATIVE (NEGATIVE); KETONES,URINE (UA) NEGATIVE (NEGATIVE); LEUKOCYTE ESTERASE, URINE TRACE (NEGATIVE); NITRITE,URINE NEGATIVE (NEGATIVE); OCCULT BLOOD,URINE NEGATIVE (NEGATIVE); PROTEIN,URINE NEGATIVE (NEGATIVE); UROBILINOGEN,URINE 0.2 (NORMAL) E.U./dL (NORMAL)
[2019-09-22 13:50] LABS: CLARITY,URINE CLEAR (CLEAR)
[2019-09-22 13:53] LABS: AMORPHOUS SEDIMENT,UR Rare /LPF; BACTERIA,URINE Rare /HPF (None Seen); MUCUS,URINE Few Strands; RBC,URINE 0-5 /HPF (0-5); SQUAMOUS EPITHELIAL CELL,UR RARE Squamous (<= Few)
== END 2019-09-22 14:39 | disposition home or self-care (01) ==
LOC: ED 09:35
DX: S00.83XA Contusion of other part of head, initial encounter (principal); M25.551 Pain in right hip; M79.651 Pain in right thigh; W06.XXXA Fall from bed, initial encounter; Z91.81 History of falling; Y92.003 Bedroom of unspecified non-institutional (private) residence as the place of occurrence of the external cause; R41.0 Disorientation, unspecified; M50.321 Other cervical disc degeneration at C4-C5 level; M41.82 Other forms of scoliosis, cervical region; E11.9 Type 2 diabetes mellitus without complications; Z79.84 Long term (current) use of oral hypoglycemic drugs; J84.9 Interstitial pulmonary disease, unspecified; I51.7 Cardiomegaly; Z96.653 Presence of artificial knee joint, bilateral
CPT/HCPCS: 36415; 70450; 71045; 72125; 80053; 81001; 81003; 83690; 83880; 85025; 87086; 87181; 96374; 99285

== ENCOUNTER 2020-05-31 17:19 | Outpatient (CLI) | payer MEDICARE, MEDICAID ==
--- NOTE | 2020-05-31 18:00 | SLEEP CARE CONSULTATION ---
Information from patient questionnaire entered by Dolly Sheikh. I have reviewed and concur with the information entered by Dolly Sheikh. This document represents the service I personally performed and the decisions made by me, Hazel Elizabeth ARNP. History of Present Illness Service Date and Time: 05/31/2020 1700 Previous diagnosis: Very Severe, Obstructive Sleep Apnea-Hypopnea Syndrome AHI: 67.1 Reason for follow up: annual (Last seen 10/2017) Equipment type: CPAP Equipment obtained from: Other (?[facility] - remote, contacted by phone) Mask style: Nasal Backup mask available: Yes (old mask) Last cushion change: 6 months Year and Where: [facility] Type of Sleep Study: Polysomnography HPI additional information: EBONY MTZ was diagnosed to have very severe, AHI 67.1, obstructive sleep apnea-hypopnea syndrome and returned today for CPAP therapy annual follow-up. CPAP Compliance Data - Data Reviewed with Patient Average duration of nightly device use: 5 hours 34 minutes Compliance rate %: 73.9 Current pressure setting (cmH2O): 8-12 Average residual AHI: 0.7 Central apnea: 0.1 Obstructive apnea: 0.1 Average large leak: 25 min 22 sec Subjective Patient concerns: reports: mask leak noise (holds mask with hand and improves). denies: aerophagia, mask discomfort, air blowing in eyes, condensation in mask/hose, nasal congestion, dry mouth, nose, throat, epistaxis, other Observed to snore while using device: No Current pressure setting perceived as: comfortable On therapy, patient: reports: sleeping better, awakening more refreshed, being more awake and alert during the day, more rested overall. denies: drowsiness while driving Initial [place] Sleepiness Scale score: 12 (in 2006 (4 in 2013)) Current [place] Sleepiness Scale score: 1 Allergies and Home Medications Drug allergies reviewed: Yes (codiene, nsaids) Home medication list reviewed: Yes (stopped Ambien due to falling and forgetting things) Review of Systems Review of systems same as previous: No (back compression fracture from a fall) Physical Exam Heart Rate: 93 O2 Saturation: 98 Height: 5 ft 1 in Weight: 200 lb Body Mass Index: 37.8 BMI Classification: Obese Impression and Plan 1. Obstructive Sleep Apnea-Hypopnea Syndrome, very severe, with good treatment compliance and good apnea control. On CPAP therapy, the patient has better sleep quality and is more rested overall. Patient's apnea severity and rationale for treatment to reduce apnea, improve sleep quality and reduce cardiovascular and cerebrovascular events was reviewed. She states she gets some mask leaking and sometimes had to rest her mask against her hand to keep in place. She states she does not wash the mask daily and has not change to a new mask for 6 months. Mask leaks can be reduced by washing mask daily and changing mask cushions more frequently to improve mask seal and comfort. She voiced understanding. 2. Insomnia, unspecified. Patient is not being able to go to sleep until 5-6 AM and sleeping until 2-4 PM. She was taking Ambien for sleep but they found that she was falling and having no recollection of the fall. Her doctor stopped the Ambien and she started having lots of trouble getting to sleep. She sees a psychiatrist who has tried her on several medication for sleep and none of them help her to go to sleep. She also sleeps through her alarm, states it won't wake her up. Insomnia is generally caused by an irregular sleep schedule. First I counseled the patient on the importance of a regular sleep schedule, starting with the wake time. I explained the homestatic sleep drive and how maintaining a regular wake time will allow the patient to be tired enough to sleep 15-16 hours later. By waking at the same time, the patient will also feel more alert. This can also be assisted by exposure to bright light for a minimum of 15 minutes a day upon waking. Most caffeine is to be stopped after lunch as it has a 6 hour half life and reduce sleep latency and efficiency. [facility] How to Sleep Better pamphlet given and reviewed. I recommended a follow up to look further into her insomnia/sleeping issues. I advised her to keep a sleep diary for the next 2 weeks to assist implementation of recommendations and for further evaluation of sleep concerns. * Continue auto CPAP pressure at 8-12 cmH2O * Follow up for insomnia after keeping 2 week sleep diary * Notify me if snoring with mask or feeling that the pressure is too much or too little * Attempt to lose weight * Call this office if any problems using CPAP * Return for follow up in 1 year, or sooner if concerns arise Visit Type: In Office Time Spent with Patient (minutes): 25 Provider Statement: I spent 100% of the Face to Face Visit with the patient with greater than 50% spent counseling the patient and coordination of care.
== END 2020-05-31 17:20 | disposition home or self-care (01) ==
LOC: SC 17:19
PROVIDERS: ATTEND Nurse Practitioner Family
DX: G47.33 Obstructive sleep apnea (adult) (pediatric) (principal); G47.00 Insomnia, unspecified; E66.9 Obesity, unspecified; Z68.37 Body mass index [BMI] 37.0-37.9, adult
CPT/HCPCS: 99213; G0463; 99212

== ENCOUNTER 2020-06-09 18:17 | Outpatient (CLI) | payer MEDICARE, MEDICAID ==
[2020-06-09 19:01] LABS: BUN - BLOOD UREA NITROGEN 16 mg/dL (6-20); CARBON DIOXIDE - CO2 24 mmol/L (21-32); CHLORIDE 101 mmol/L (101-111); CHOL/HDL RATIO 3.6 (<4.4); CHOLESTEROL 228 mg/dL; CREATININE 0.8 mg/dL (0.4-1.0); GLUCOSE 89 mg/dL (70-100); HDL CHOLESTEROL 63 mg/dL; LDL CHOLESTEROL,CALCULATED 129 mg/dL; SODIUM 137 mmol/L (135-145); VLDL CHOLESTEROL 36 mg/dL
[2020-06-09 19:03] LABS: CREATININE,URINE 215.3 mg/dL
[2020-06-09 19:05] LABS: MICROALBUMIN,URINE < 0.2 mg/dL (0-300.0)
[2020-06-09 20:23] LABS: HEMOGLOBIN A1c% 5.3 % (4.27-6.07)
== END 2020-06-09 18:18 | disposition home or self-care (01) ==
LOC: LAB 18:17
PROVIDERS: ATTEND Internal Medicine
DX: E11.40 Type 2 diabetes mellitus with diabetic neuropathy, unspecified (principal); E78.2 Mixed hyperlipidemia; E03.9 Hypothyroidism, unspecified
CPT/HCPCS: 36415; 80051; 80061; 82043; 82565; 82570; 82947; 83036; 83721; 84443; 84520

== ENCOUNTER 2020-07-18 15:29 | Outpatient (CLI) | payer MEDICARE, MEDICAID ==
--- NOTE | 2020-07-18 23:23 | SLEEP CARE CONSULTATION ---
Information from patient questionnaire entered by Yessy Hammond. I have reviewed and concur with the information entered by Yessy Hammond. This document represents the service I personally performed and the decisions made by me, Randy Kapoor MD, [facility]. History of Present Illness Service Date and Time: 07/18/2020 1529 Previous diagnosis: Very Severe, Obstructive Sleep Apnea-Hypopnea Syndrome AHI: 67.1 (in 2006) Reason for follow up: other (6 week with sleep diary) Equipment type: CPAP Equipment obtained from: Other (?[facility] - remote, contacted by phone) Mask style: Nasal Prior sleep studies: Yes Year and Where: 2006 - [facility] Type of Sleep Study: Polysomnography HPI additional information: To minimize the risk of COVID-19 exposure, the patient has requested and consented to this telephone visit. The patient also agrees to having her insurance billed. HPI: Ms. Treviño was called today to follow up on the nasal CPAP therapy. She was diagnosed to have moderate obstructive sleep apnea-hypopnea syndrome. The patient wears with a nasal mask. She reports using the device nightly and all through the night. The compliance data is not available. The last download was on 05/31/20 when she was last in the office. She reports going to bed around midnight to 1 am. It takes her several hours to fall asleep. She gets up around noon to 3 pm according to the CPAP download. She takes amphetamine if she wakes up before noon. On the average, she takes the medication once every 2 3 days. She tried sleeping pills, but they did not help. Subjective Initial [place] Sleepiness Scale score: 12 (in 2006 (4 in 2013)) Allergies and Home Medications Drug allergies reviewed: Yes Home medication list reviewed: Yes Review of Systems Review of systems same as previous: Yes Physical Exam Height: 5 ft 1 in Impression and Plan IMPRESSION: 1. Obstructive Sleep Apnea-Hypopnea Syndrome, moderate (AHI was 23.6 in 2009), with the patient doing well on nasal CPAP therapy. Based on her prior download, she has good compliance and significant clinical improvement. The current pressure appears effective and comfortable. Her mask fits well. Overall, she is very satisfied with treatment and plans to continue with it long-term. No adjustment is necessary today. 2. Insomnia, due to circadian rhythm disorder. According to her last CPAP download, she has delayed sleep phase syndrome. She puts the CPAP on between 3 and 6 am and does not take it off until 1 3 pm. I reassured her that she getting enough sleep, except that her sleep is mostly during the day. Her insomnia can be easily resolved by going to bed 8 hours before her wake up time. If she gets out of bed at 2 pm, she should not go to bed until 6 am. We talked about adjusting her circadian rhythm but it does not appear that she has enough motivation or self-discipline to make it happen. PLAN: 1. Continue with autoCPAP at the same setting. 2. Do not attempt to go to bed until after 3 am or later. 3. Try to not sleep past 1 pm. 4. Avoid sedating sleep medications as they increase the risk of falling. 5. Return in one year for follow up or earlier if there is any problem with the treatment. Visit Type: Telehealth Video Video Type: Doximity Patient Location: Home Location of Provider: Home Patient agrees and consents to this telehealth visit type: Yes Patient agrees to have their insurance billed: Yes Time Spent with Patient (minutes): 15 Provider Statement: I spent 100% of the Telehealth Video Call with the patient with greater than 50% spent counseling the patient and coordination of care.
== END 2020-07-18 15:30 | disposition home or self-care (01) ==
LOC: SC 15:29
PROVIDERS: ATTEND Internal Medicine Pulmonary Disease
DX: G47.33 Obstructive sleep apnea (adult) (pediatric) (principal); G47.00 Insomnia, unspecified; G47.21 Circadian rhythm sleep disorder, delayed sleep phase type

== ENCOUNTER 2020-12-15 13:58 | Outpatient (CLI) | payer MEDICARE, MEDICAID ==
--- NOTE | 2020-12-15 16:04 | XRAY Report ---
PROCEDURE: Lumbar Spine 2 View INDICATIONS: LOW BACK PAIN TECHNIQUE: 3 views of the lumbar spine were acquired. COMPARISON: Plain films of the lumbar spine dated 05/10/2019. FINDINGS: Bones: 5 [id number] vertebrae are present. There is loss of normal lumbar lordosis. Mild leftw pk curvature of the upper lumbar spine. Mild grade 1 anterolisthesis of L4 on L5. Mild chronic appea ring L1 compression fracture is unchanged. The level disc space narrowing and endplate osteophyte for mation, as well as facet hypertrophy. No acute appearing vertebral body compression fractures. No dominguez spicious bony lesions. Soft tissues: Overlying bowel gas pattern is normal. No suspicious soft tissue calcifications. IMPRESSION: Multilevel degenerative disc and facet disease. No acute fracture. No osseous lesion. If symptoms and/or clinical suspicion for pathology continue, further assessment with repeat plain film s, or advanced imaging (e.g., CT, MRI, or bone scan) is recommended for further assessment. Reviewed by: Carlton Villareal MD on 12/15/2020 4:02 PM PDT Approved by: Carlton Villareal MD on 12/15/2020 4:02 PM PDT Station ID: [id number]
--- NOTE | 2020-12-15 17:09 | XRAY Report ---
PROCEDURE: Hip w/Pelvis 2-3V RT INDICATIONS: HIP PAIN TECHNIQUE: AP pelvis with lateral view(s) of the right hip(s). COMPARISON: None. FINDINGS: Bones: No fractures or dislocations. There is a mild degree of symmetric hip joint space narrowing, consistent with mild degenerative osteoarthritis. Pelvic ring appears intact. No suspicious bony le sions. Soft tissues: The visualized bowel gas pattern is normal. No suspicious soft tissue calcifications. IMPRESSION: No trauma found. Mild symmetric hip joint osteoarthritis. Reviewed by: Juan Francisco Smith MD on 12/15/2020 5:07 PM PDT Approved by: Juan Francisco Smith MD on 12/15/2020 5:07 PM PDT Station ID: [id number]
== END 2020-12-15 13:59 | disposition home or self-care (01) ==
LOC: DI 13:58
PROVIDERS: ATTEND Internal Medicine
DX: M51.36 Other intervertebral disc degeneration, lumbar region (principal); M47.816 Spondylosis without myelopathy or radiculopathy, lumbar region; M43.16 Spondylolisthesis, lumbar region; M16.11 Unilateral primary osteoarthritis, right hip

== ENCOUNTER 2020-12-15 14:07 | Outpatient (CLI) | payer MEDICARE, MEDICAID | END 2020-12-15 14:08 | disposition home or self-care (01) | LOC: LAB 14:07 | PROVIDERS: ATTEND Internal Medicine | DX: Z53.9 Procedure and treatment not carried out, unspecified reason (principal); R39.15 Urgency of urination ==

== ENCOUNTER 2020-12-26 08:00 | Outpatient (CLI) | payer MEDICARE, MEDICAID ==
[2020-12-26 15:24] LABS: BILIRUBIN,URINE NEGATIVE (NEGATIVE); GLUCOSE, URINE (UA) NEGATIVE (NEGATIVE); KETONES,URINE (UA) NEGATIVE (NEGATIVE); LEUKOCYTE ESTERASE, URINE TRACE (NEGATIVE); NITRITE,URINE NEGATIVE (NEGATIVE); OCCULT BLOOD,URINE NEGATIVE (NEGATIVE); PROTEIN,URINE NEGATIVE (NEGATIVE); UROBILINOGEN,URINE 0.2 (NORMAL) E.U./dL (NORMAL)
[2020-12-26 15:25] LABS: CLARITY,URINE CLEAR (CLEAR)
[2020-12-26 15:29] LABS: BACTERIA,URINE None Seen /HPF (None Seen); MUCUS,URINE Few Strands; RBC,URINE 0-5 /HPF (0-5); SQUAMOUS EPITHELIAL CELL,UR FEW Squamous (<= Few)
== END 2020-12-26 23:59 | disposition home or self-care (01) ==
LOC: LAB.R 08:00
PROVIDERS: ATTEND Internal Medicine
DX: R39.15 Urgency of urination (principal)
CPT/HCPCS: 81001

== ENCOUNTER 2021-10-22 13:48 | Outpatient (CLI) | payer MEDICARE, MEDICAID ==
[2021-10-22 20:27] VITALS: BP 110/80
--- NOTE | 2021-10-22 20:27 | SLEEP CARE CONSULTATION ---
Information from patient questionnaire entered by Eric Barros MA. I have reviewed and concur with the information entered by Eric Barros MA. This document represents the service I personally performed and the decisions made by me, Randy Kapoor MD, [facility]. History of Present Illness Service Date and Time: 10/22/2021 1348 Previous diagnosis: Very Severe, Obstructive Sleep Apnea-Hypopnea Syndrome AHI: 67.1 (in 2006) Reason for follow up: annual (LAST SEEN 07/2020, NO PRIORS) Equipment type: CPAP Equipment obtained from: Other (?[facility] - remote, contacted by phone) Mask style: Nasal Prior sleep studies: Yes Year and Where: 2006 - [facility] Type of Sleep Study: Polysomnography HPI additional information: Ms. Treviño was returns today to follow up on the nasal CPAP therapy. She was diagnosed to have moderate obstructive sleep apnea-hypopnea syndrome. The patient wears with a Respirflo.dos MinuboWear nasal cushion mask. She reports using the device nightly and all through the night. The compliance data show usage in 180 out of the past 180 nights, averaging 7.3 hours a night. The residual AHI is 1.6 and average air leak is 4 minutes. The pressure is set at 8 12 cmH2O. She reports going to bed around midnight to 2 am. It takes her 1 - 2 hours to fall asleep. 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 Sleep Study - Results Type of Sleep Study: Polysomnography Prior sleep studies: Yes Year and Where: 2006 - [facility] Subjective Current pressure setting perceived as: comfortable Initial Stover Sleepiness Scale score: 12 (in 2006 (4 in 2013)) Current Stover Sleepiness Scale score: 2 (2021) Allergies and Home Medications Known drug allergies: Yes (CODIENE, NSAIDS) Drug allergies reviewed: Yes Home medication list reviewed: Yes Allergy and home medication list: Allergies codeine Adverse Reaction (Verified 09/22/19 09:48) Nausea NSAIDS (Non-Steroidal Anti-Inflamma Adverse Reaction (Verified 09/22/19 09:48) Nausea Review of Systems Review of systems same as previous: Yes Physical Exam Vital signs obtained and entered by: FABRICE CERDA Blood Pressure: 110/80 (LEFT, PULSE 86, RESP 21,) Cuff size: wrist Heart Rate: 112 O2 Saturation: 98 Height: 5 ft 1 in Weight: 195 lb (WITH CLOTHES AND SHOES) Body Mass Index: 36.8 BMI Classification: Obese Impression and Plan IMPRESSION: 1. Obstructive Sleep Apnea-Hypopnea Syndrome, moderate (AHI was 23.6 in 2009), with the patient doing well on nasal CPAP therapy. Based on her prior download, she has good compliance and significant clinical improvement. The current pressure appears effective and comfortable. Her mask fits well. Because the CPAP is now older than the useful life of 5 years, I will order the patient a new one and make it an autoCPAP set between 8 and 12 cmH2O. 2. Insomnia, improved with the patient not waking up any later than noon. PLAN: 1. Continue with autoCPAP at the same setting. 2. prescription made for a new autoCPAP and sent to [facility]. 3. Try to not go to sleep until 4 am. 4. Return for follow up after one month of using the CPAP. Prescriptions: Auto CPAP Follow up with Sleep Care in: 3 months Visit Type: In Office Time Spent with Patient (minutes): 15 Provider Statement: I spent 100% of the Face to Face Visit with the patient with greater than 50% spent counseling the patient and coordination of care.
== END 2021-10-22 13:49 | disposition home or self-care (01) ==
LOC: SC 13:48
PROVIDERS: ATTEND Internal Medicine Pulmonary Disease
DX: G47.33 Obstructive sleep apnea (adult) (pediatric) (principal); E66.9 Obesity, unspecified; Z68.36 Body mass index [BMI] 36.0-36.9, adult
CPT/HCPCS: 99212; G0463